=== PATIENT | male | born 1980 ===

== ENCOUNTER 2018-12-08 17:12 | Emergency (ER) | payer SELFPAY ==
[2018-12-08 17:25] VITALS: BP 127/76; PULSE 76; RESP 20; TEMP 98; O2SAT 98
--- NOTE | 2018-12-08 17:55 | ED PDOC ---
HPI: Psych/Substance Abuse Time Seen by Provider: 12/08/18 17:31 Chief Complaint (Nursing): Medical Clearance Chief Complaint (Provider): Medical Clearance History Per: Patient History/Exam Limitations: no limitations Onset/Duration Of Symptoms: Hrs Current Symptoms Are (Timing): Still Present Additional Complaint(s): Patient is a 38 y/o male with no significant PMHx who was brought in by officers for medical and psychiatric clearance for incarceration. Patient denies any medical problems, body pain, and rashes or lesions. Of note, patient has a history of marijuana use. PCP: None Provided Past Medical History Reviewed: Historical Data, Nursing Documentation, Vital Signs Vital Signs: Last Vital Signs Temp 98 F 12/08/18 17:22 Pulse 76 12/08/18 17:22 Resp 20 12/08/18 17:22 BP 127/76 12/08/18 17:22 Pulse Ox 98 12/08/18 17:22 - Medical History PMH: No Chronic Diseases Denies: CAD - Surgical History Surgical History: No Surg Hx - Family History Family History: States: Diabetes - Social History Drugs: Cannabis - Allergies Allergies/Adverse Reactions: Allergies Allergy/AdvReac Type Severity Reaction Status Date / Time No Known Allergies Allergy Verified 12/08/18 17:15 Review of Systems ROS Statement: Except As Marked, All Systems Reviewed And Found Negative Constitutional: Negative for: Fever Cardiovascular: Negative for: Chest Pain Respiratory: Negative for: Shortness of Breath Gastrointestinal: Negative for: Abdominal Pain Musculoskeletal: Negative for: Neck Pain, Shoulder Pain, Arm Pain, Back Pain, Hand Pain, Leg Pain, Foot Pain Skin: Negative for: Rash, Lesions Physical Exam - Reviewed Nursing Documentation Reviewed: Yes Vital Signs Reviewed: Yes - Physical Exam Appears: Positive for: No Acute Distress Head Exam: Positive for: ATRAUMATIC, NORMAL INSPECTION, NORMOCEPHALIC Skin: Positive for: Normal Color, Warm Eye Exam: Positive for: EOMI, Normal appearance, PERRL ENT: Positive for: Normal ENT Inspection Neck: Positive for: Normal, Painless ROM, Supple Cardiovascular/Chest: Positive for: Regular Rate, Rhythm. Negative for: Murmur Respiratory: Positive for: Normal Breath Sounds (clear auscultation bilaterally). Negative for: Respiratory Distress Gastrointestinal/Abdominal: Positive for: Normal Exam, Soft. Negative for: Tenderness Extremity: Positive for: Normal ROM (Upper/Lower). Negative for: Pedal Edema, Deformity Neurologic/Psych: Positive for: Alert, Oriented. Negative for: Motor/Sensory Deficits - ECG O2 Sat by Pulse Oximetry: 98 (RA) Pulse Ox Interpretation: Normal Medical Decision Making Medical Decision Making: Time: 1752 Impression: Cleared for Incarceration Plan: Crisis Evaluation Medical Clearance Pt is medically and psychiatrically cleared for incarceration Scribe Attestation: Documented by Td Patricia, acting as a scribe for CORTNEY Castle. Provider Scribe Attestation: All medical record entries made by the Scribe were at my direction and personally dictated by me. I have reviewed the chart and agree that the record accurately reflects my personal performance of the history, physical exam, medic al decision making, and the department course for this patient. I have also personally directed, reviewed, and agree with the discharge instructions and disposition. Disposition - Clinical Impression Clinical Impression: Medical clearance for incarceration, Psychiatric exam requested by authority - Patient ED Disposition Is Patient to be Admitted: No Counseled Patient/Family Regarding: Diagnosis - Disposition Disposition: Discharged/Transfer to Law Enforcement Disposition Time: 18:25 Condition: STABLE Additional Instructions: Pt is medically cleared for incarceration Pt is psychiatrically cleared for incarceration Instructions: General (DC) Forms: [facility] ([place]ali)
== END 2018-12-08 18:33 ==
LOC: H.ER 17:12
DX: F12.90 Cannabis use, unspecified, uncomplicated